=== PATIENT | female | born 1935 | race Two or more races ===

== ENCOUNTER 2024-12-28 18:32 | Emergency (ER) | payer MEDICAID, OTHER ==
[~2024-12-28] VITALS: Ht 154.9 cm; Wt 69.7 kg
[2024-12-28] MEDS ORDERED: LIDOCAINE 1% HCL (LOCAL ANESTH.) INJ 20ML MDV ID ONE (19:00)
--- NOTE | 2024-12-28 19:12 | ED.PDOC ---
History of Present Illness HPI Comments 89 y/o F presents with friend for c/o laceration to left-index finger with associated pain, today. Patient is a [place] speaker and endorses on cutting herself by accident with a knife, while cooking, earlier, this evening. She denies any weakness, fatigue, lightheadedness, numbness, tingling, or additional injuries at this time. Chief Complaint: Laceration Time Seen by MD: 18:45 Primary Care Provider: NONE Reviewed Notes: Nurses Notes, Medications, Allergies Allergies: Coded Allergies: Penicillins (Verified Allergy, Unknown, 06/06/24) Information Source: Patient Mode of Arrival: Ambulatory Severity: Moderate Timing: Hours Duration: Since onset Prehospital treatment: Other (dressing) Past Medical History PAST MEDICAL HISTORY: Angina, DM, High Lipids, HTN, Thyroid Social History Lives In: Home All Other Systems: Reviewed and Negative (negative unless otherwise stated in HPI) Physical Exam General Appearance: No Apparent Distress, Normal HEENT: Normal ENT Inspection, Pharynx Normal, TMs Normal Neck: Full Range of Motion, Non-Tender, Normal, Normal Inspection Respiratory: Chest Non-Tender, Lungs Clear, No Accessory Muscle Use, No Resp iratory Distress, Normal Breath Sounds Cardiovascular: No Edema, No JVD, No Murmur, No Gallop, Normal Peripheral Pulses, Regular Rate/Rhythm Breast Exam: Deferred Gastrointestinal: No Organomegaly, Non Tender, No Pulsatile Mass, Normal Bowel Sounds, Soft Genitalia: Deferred Pelvic: Deferred Rectal: Deferred Extremities: No calf tenderness, Normal capillary refill, Normal inspection, Normal range of motion, Non-tender, No pedal edema Musculoskeletal : Apperance: Normal Neurologic: Alert, lunchroom supervisor II-XII nml as Tested, No Motor Deficits, Normal Affect, Normal Mood, No Sensory Deficits Cerebellar Function: Normal Reflexes: Normal Skin: Dry, Lacerations (1cm laceration to 1st digit on left hand ), Normal Color, Warm Lymphatic: No Adenopathy Was a procedure done? Was a procedure done?: Yes Sedation Sedation?: No Informed consent obtained: No Laceration Repair : Location 1st digit on left hand Length 1cm Anesthetic: Lidocaine Laceration Repair Prep: Saline, Shur-Clens, by Irrigation, Manual Scrub Laceration Repair Wound Comple: subcut tissue repair Laceration Repair: Number of sutures, Size (4.0) Informed consent obtained: Yes Risks, benefits, and alternati: Yes Differential Dx Considerations may include: laceration X-Ray, Labs, Meds, VS Vital Signs Date Time Temp Pulse Resp B/P (MAP) Pulse Ox O2 Delivery O2 Flow Rate FiO2 12/28/24 18:46 97.7 83 18 171/89 (116) 96 Lab Test 12/28/24 18:46 Range/Units POC Glucose 92 70-106 mg/dl Time of 1ST Reevaluation: 19:15 Reevaluation 1ST: Improved Patient Education/Counseling: Diagnosis, Treatment Family Education/Counseling: Other (friend present ) Departure 1 Departure Time of Disposition: 19:15 Impression: Primary Impression: Laceration of left index finger w/o foreign body w/o damage to nail Disposition: 01 HOME / SELF CARE / HOMELESS Condition: Stable Discharged With: Self, Relative Critical Care Note Critical Care Time?: No Stability Stability form required: No Heart Score Heart Score: Heart Score Response (Comments) Value History N/A 0 EKG N/A 0 Age N/A 0 Risk Factors N/A 0 Troponin N/A 0 Total 0 I personally scribed for TIAN CHAMPION MD ([email or web address]) on 12/28/24 at 19:12. Electronically submitted by Laurent Long [email or web address]). TIAN CHAMPION MD Dec 28, 2024 19:12
[2024-12-28 19:40] VITALS: BP 147/68; TEMP 97.8
[2024-12-28 19:45] VITALS: PULSE 71; RESP 14; O2SAT 95
== END 2024-12-28 19:50 | disposition home or self-care (01) ==
LOC: ER 18:32
DX: S61.211A Laceration without foreign body of left index finger without damage to nail, initial encounter (principal); I10 Essential (primary) hypertension; E11.9 Type 2 diabetes mellitus without complications; E78.5 Hyperlipidemia, unspecified; E03.9 Hypothyroidism, unspecified; Z88.0 Allergy status to penicillin; W26.0XXA Contact with knife, initial encounter; Y93.89 Activity, other specified; Y92.89 Other specified places as the place of occurrence of the external cause; Y99.8 Other external cause status
CPT/HCPCS: 12001; 82962; 99282; J2003

== ENCOUNTER 2025-01-07 13:18 | Emergency (ER) | payer OTHER ==
[~2025-01-07] VITALS: Ht 149.9 cm; Wt 67.1 kg
[2025-01-07 13:30] VITALS: BP 148/62; PULSE 76; RESP 18; O2SAT 94
--- NOTE | 2025-01-07 14:26 | ED.PDOC ---
History of Present Illness(SKN HPI Comments 89-year-old female presents for suture removal. No other complaint Chief Complaint: Suture Removal Time Seen by MD: 14:17 Primary Care Provider: UNKNOWN History of Present Illness: Nurses Notes, Medications, Allergies Allergies: Coded Allergies: Penicillins (Verified Allergy, Unknown, 06/06/24) Information Source: Patient Mode of Arrival: Ambulatory Past Medical History PAST MEDICAL HISTORY: Angina, DM, High Lipids, HTN, Thyroid Social History Lives In: Home All Other Systems: Reviewed and Negative (per hpi) Physical Exam General Appearance: No Apparent Distress, Normal HEENT: Normal ENT Inspection, Pharynx Normal, TMs Normal Neck: Full Range of Motion, Non-Tender, Normal, Normal Inspection Respiratory: Chest Non-Tender, Lungs Clear, No Accessory Muscle Use, No Respiratory Distress, Normal Breath Sounds Cardiovascular: No Edema, No JVD, No Murmur, No Gallop, Normal Peripheral Pulses, Regular Rate/Rhythm Breast Exam: Deferred Gastrointestinal: No Organomegaly, Non Tender, No Pulsatile Mass, Normal Bowel Sounds, Soft Genitalia: Deferred Pelvic: Deferred Rectal: Deferred Extremities: No calf tenderness, Normal capillary refill, Normal inspection, Normal range of motion, Non-tender, No pedal edema Musculoskeletal : Apperance: Normal Neurologic: Alert, room service associate II-XII nml as Tested, No Motor Deficits, Normal Affect, Normal Mood, No Sensory Deficits Cerebellar Function: Normal Reflexes: Normal Skin: Dry, Normal Color, Warm Lymphatic: No Adenopathy Was a procedure done? Was a procedure done?: No Differential Diagnosis (INTG) Differential Diagnosis: Other X-Ray, Labs, Meds, VS Vital Signs Date Time Temp Pulse Resp B/P (MAP) Pulse Ox O2 Delivery O2 Flow Rate FiO2 01/07/25 13:30 98.7 76 18 148/62 (90) 94 X-Ray, Labs, Meds, VS Comment Suture Removal Used sterile suture removal kit to remove sutures. Clean, dry, intact. No discharge seen. Education provided to keep area clean and dry. If gets soiled, use soap and water to clean. Watch out for signs and symptoms of infection including fever, chills, yellow or green discharge, increased pain, swelling etc. Time of 1ST Reevaluation: 14:20 Reevaluation 1ST: Improved Patient Education/Counseling: Diagnosis, Treatment Family Education/Counseling: Diagnosis, Treatment Departure 1 Departure Time of Disposition: 14:26 Impression: Primary Impression: Visit for suture removal Disposition: 01 HOME / SELF CARE / HOMELESS Condition: Stable Critical Care Note Critical Care Time?: No Stability Stability form required: No Heart Score Heart Score: Heart Score Response (Comments) Value History N/A 0 EKG N/A 0 Age N/A 0 Risk Factors N/A 0 Troponin N/A 0 Total 0 KULWINDER KING NP Jan 07, 2025 14:26
== END 2025-01-07 14:30 | disposition home or self-care (01) ==
LOC: ER 13:18
DX: S61.219D Laceration without foreign body of unspecified finger without damage to nail, subsequent encounter (principal); Z88.0 Allergy status to penicillin; Y99.8 Other external cause status